=== PATIENT | male | born 1965 | race Caucasian/White ===

== ENCOUNTER 2017-02-08 23:03 | Emergency (ER) | payer MEDICAID, OTHER, SELFPAY ==
[~2017-02-08] VITALS: Ht 172.7 cm; Wt 77.0 kg
[2017-02-08 23:10] VITALS: BP 130/100
[2017-02-08] MEDS ORDERED: ATEN50TA2 (23:20)
[2017-02-08] MEDS ORDERED: OMEP40CA2 (23:20)
[2017-02-08] MEDS ORDERED: DULO1CAP3 (23:20)
[2017-02-08] MEDS ORDERED: ACETGRA (23:20)
[2017-02-08] MEDS ORDERED: MELO15TA4 (23:20)
== END 2017-02-09 00:26 | disposition left against medical advice (07) ==
LOC: M ED 23:03 → EDBD 23:03 → M ED 02-09 00:26
DX: S61.211A Laceration without foreign body of left index finger without damage to nail, initial encounter (principal); S61.213A Laceration without foreign body of left middle finger without damage to nail, initial encounter; W31.2XXA Contact with powered woodworking and forming machines, initial encounter; Y92.9 Unspecified place or not applicable; Y93.9 Activity, unspecified; Y99.9 Unspecified external cause status; Z53.21 Procedure and treatment not carried out due to patient leaving prior to being seen by health care provider

== ENCOUNTER → 2017-03-26 | Outpatient (CLI) | payer SELFPAY, MEDICAID, OTHER ==
[~2017-03-26] MED LIST: ACETGRA; ATEN50TA2; DULO1CAP3; MELO15TA4; OMEP40CA2
--- NOTE | 2017-03-26 18:31 | REP ---
LEFT FOOT COMPLETE: 03/26/2017. Comparison: The patient also had an ankle series this date. Clinical history: Trauma, patient fell off ladder. Findings: There is a mildly comminuted fracture through the calcaneus, vertically oriented, and extending to the anterior margin of posterior subtalar joint. Talonavicular articulation is preserved. The calcaneal cuboid articulation grossly intact. Posterior calcaneus preserved. Posterior subtalar joint grossly aligned. Tarsal bones, metatarsals and phalanges are without definite acute fracture. Impression: 1. Comminuted fracture of the calcaneus in the mid body into the anterior process and neck of the calcaneus and seen with small fragment anterolaterally near the calcaneocuboid joint. No other visible fracture. Prominent soft tissue swelling. Signed by Mayur Chirinos MD 03/26/2017 08:07 P
--- NOTE | 2017-03-26 18:45 | REP ---
LEFT ANKLE COMPLETE: 03/26/2017: Clinical history: Trauma, fell off ladder. Findings: No prior study. Prominent soft tissue swelling over the lateral malleolus. There is no fracture of the distal tibia or fibula. However, there is a comminuted fracture of the calcaneus extending into the anterior margin posterior subtalar joint. Mortise joint symmetric and preserved. Talar dome shows no osteochondral defect. Posterior calcaneus was intact. Talonavicular joint was intact. Impression: 1. Mildly comminuted fracture of the calcaneus at the subtalar joint is just anterior to the posterior subtalar joint and some and extending into the neck of the talus see no subluxation or dislocation. There is significant soft tissue swelling around the ankle, but no visible fracture of the distal tibia or fibula. Mortise joint symmetric and preserved. Signed by Mayur Chirinos MD 03/26/2017 08:08 P
== END ==
LOC: M ADAMS 17:17
PROVIDERS: ATTEND Physician Assistant
DX: M25.572 Pain in left ankle and joints of left foot (principal); M79.672 Pain in left foot

== ENCOUNTER → 2017-04-08 | Outpatient (CLI) | payer OTHER ==
--- NOTE | 2017-04-08 10:29 | REP ---
CT STUDY OF THE LEFT FOOT WITHOUT CONTRAST: HISTORY: Calcaneal fracture. COMPARISON RADIOGRAPH: March 26, 2017 CT TECHNIQUE: Helical scanning is acquired. Contiguous 2 mm axial images are generated. Coronal and sagittal multiplanar reformation images are generated and reviewed. CT FINDINGS: CT study confirms the presence of a moderately comminuted depressed fracture of the calcaneus. On coronal reformation images, there is a 3.5 mm diastasis in the sagittally oriented component of the fracture involving the posterior facet. There is impaction. There is some lateral displacement along the lateral contour. Medially, the fracture involves the anterior portion of the calcaneus as well. No talar fracture is seen. The tibial plafond and talar dome appear intact. No distal fibular fracture is noted. No other tarsal bony injury is appreciated. IMPRESSION: Comminuted calcaneal fracture with flattening. Signed by Gama Faust MD 04/08/2017 03:28 P
== END ==
LOC: M RAD 09:11
PROVIDERS: ATTEND Orthopaedic Surgery
DX: S92.012A Displaced fracture of body of left calcaneus, initial encounter for closed fracture (principal); X58.XXXA Exposure to other specified factors, initial encounter; Y92.89 Other specified places as the place of occurrence of the external cause; Y99.9 Unspecified external cause status; Y93.9 Activity, unspecified

== ENCOUNTER → 2017-06-26 | Outpatient (REF) | payer MEDICAID, OTHER ==
[2017-06-26 20:31] LABS: FOLATE 7.9 NG/ML; VITAMIN B12 LEVEL 514 PG/ML
[2017-06-26 20:32] LABS: ALBUMIN/GLOBULIN RATIO 1.33 (1.00-1.93); ALKALINE PHOSPHATASE 58 U/L (45-117); ALT/SGPT 18 U/L (12-78); ANION GAP 7 MEQ/L (8-16); AST/SGOT 6 U/L (7-37); BILIRUBIN,TOTAL 0.4 MG/DL (0.2-1.0); BLOOD UREA NITROGEN 15 MG/DL (7-18); CALCIUM LEVEL 9.2 MG/DL (8.5-10.1); CARBON DIOXIDE LEVEL 30 MEQ/L (21-32); CHLORIDE LEVEL 106 MEQ/L (98-107); CREATININE FOR GFR 1.01 MG/DL (0.70-1.30); GLOMERULAR FILTRATION RATE > 60.0 (>56); GLUCOSE, FASTING 99 MG/DL (70-105); POTASSIUM SERUM 4.5 MEQ/L (3.5-5.1); SODIUM LEVEL 143 MEQ/L (136-145)
[2017-06-26 20:49] LABS: MEAN CORPUSCULAR HGB CONC 34.5 g/dl (32.0-36.5); MEAN CORPUSCULAR VOLUME 98.5 fl (80.0-96.0); PLATELET COUNT, AUTOMATED 260 10^3/uL (150-450); RED CELL DISTRIBUTION WIDTH 11.8 % (11.5-14.5); WHITE BLOOD COUNT 6.1 10^3/uL (4.0-10.0)
== END ==
LOC: M SFHCADAM 14:44
PROVIDERS: ATTEND Physician Assistant
DX: G89.29 Other chronic pain (principal); I10 Essential (primary) hypertension; D75.89 Other specified diseases of blood and blood-forming organs; Z12.11 Encounter for screening for malignant neoplasm of colon

== ENCOUNTER 2017-12-23 15:13 | Day surgery (SDC) | payer OTHER ==
[2017-12-23] MEDS: LIDOCAINE 2% JELLY 30 ML TOP (17:22)
[2017-12-23] MEDS ORDERED: PROPOFOL 200 MG/20 ML VIAL As Ordered (19:13)
[2017-12-23] MEDS ORDERED: MIDAZOLAM INJ 2 MG/2 ML VIAL (J2250) As Ordered ×3 (19:13→19:23)
[2017-12-23] MEDS ORDERED: fentaNYL 100 MCG/2 ML INJECTION (J3010) As Ordered (19:13)
== END 2017-12-23 21:00 | disposition home or self-care (01) ==
LOC: M SDC 21:00 → M ED 15:13 → M SDC 17:01
DX: T18.5XXA Foreign body in anus and rectum, initial encounter (principal); I10 Essential (primary) hypertension; Z86.73 Personal history of transient ischemic attack (TIA), and cerebral infarction without residual deficits; F17.210 Nicotine dependence, cigarettes, uncomplicated; Z79.82 Long term (current) use of aspirin; Z79.899 Other long term (current) drug therapy; Y92.002 Bathroom of unspecified non-institutional (private) residence as the place of occurrence of the external cause
CPT/HCPCS: 46608

== ENCOUNTER 2018-10-24 23:28 | Emergency (ER) | payer OTHER, MEDICAID ==
[~2018-10-24] VITALS: Ht 172.7 cm; Wt 84.1 kg
[~2018-10-24 23:28] MED LIST changes: +ACET-716 PO; +ASPI-286 PO; +ASPI81CH49 PO; +BISO5TAB5 PO; +DULO1CAP3 PO; +FOLI1TAB11 PO; +LISI-542 PO; +MELO15TA28; +MELO15TA28 PO; -MELO15TA4; +NICO21DI34 TD; +NICO21PAT TD; +OMEP40CA2 PO; +PATIENT COMMENT; +SIMV40TA2 PO; +THIA100T7 PO; +THIA100TA PO; +VITMTA PO
[2018-10-25] MEDS ORDERED: NS 1,000 ML IV ONE (00:15)
[2018-10-25] MEDS ORDERED: ONDANSETRON 4MG/2ML VIAL (J2405) IV ONE (00:15)
[2018-10-25 00:46] LABS: BASO # 0.1 10^3/uL (0.0-0.2); BASO % 0.9 % (0.0-1.0); EOS # 0.1 10^3/uL (0.0-0.50); EOS % 1.6 % (0.0-3.0); HEMOGLOBIN 16.2 g/dl (13.5-17.5); LYMPH # 2.7 10^3/uL (1.5-4.5); LYMPH % 39.9 % (24.0-44.0); MEAN CORPUSCULAR HEMOGLOBIN 33.6 pg (27.0-33.0); MEAN CORPUSCULAR HGB CONC 35.2 g/dl (32.0-36.5); MEAN CORPUSCULAR VOLUME 95.4 fl (80.0-96.0); MONO # 0.4 10^3/uL (0.0-0.8); MONO % 6.4 % (0.0-5.0); NEUTROPHILS # 3.4 10^3/uL (1.8-7.7); NEUTROPHILS % 50.8 % (36.0-66.0); PLATELET COUNT, AUTOMATED 203 10^3/uL (150-450); RED BLOOD COUNT 4.82 10^6/uL (4.30-6.10); WHITE BLOOD COUNT 6.7 10^3/uL (4.0-10.0)
[2018-10-25 01:09] LABS: AMPHETAMINES LEVEL URINE NEGATIVE (NEGATIVE); BARBITURATES URINE NEGATIVE (NEGATIVE); BENZODIAZEPINES URINE NEGATIVE (NEGATIVE); CANNABINOIDS URINE NEGATIVE (NEGATIVE); COCAINE METABOLITE URINE NEGATIVE (NEGATIVE); METHADONE URINE NEGATIVE (NEGATIVE); OPIATES URINE NEGATIVE (NEGATIVE); PHENCYCLIDINE URINE NEGATIVE (NEGATIVE)
[2018-10-25 01:19] LABS: ACETAMINOPHEN LEVEL < 2.0 UG/ML (10.0-30.0); ALBUMIN 3.8 GM/DL (3.2-5.2); ALT/SGPT 20 U/L (12-78); BILIRUBIN,DIRECT 0.1 MG/DL (0.0-0.2); BILIRUBIN,TOTAL 0.4 MG/DL (0.2-1.0); BLOOD UREA NITROGEN 5 MG/DL (7-18); CALCIUM LEVEL 8.3 MG/DL (8.5-10.1); CARBON DIOXIDE LEVEL 21 MEQ/L (21-32); CHLORIDE LEVEL 107 MEQ/L (98-107); CK-MB VALUE MASS < 1.0 NG/ML (<3.6); CPK CREATINE PHOSPHOKINASE 60 U/L (39-308); CREATININE FOR GFR 0.82 MG/DL (0.70-1.30); GLOMERULAR FILTRATION RATE > 60.0 (>56); GLUCOSE, FASTING 85 MG/DL (70-100); MB/CK RELATIVE INDEX 1.66 (< OR =4); POTASSIUM SERUM 4.1 MEQ/L (3.5-5.1); SALICYLATE LEVEL 4.5 MG/DL (5.0-30.0); SODIUM LEVEL 139 MEQ/L (136-145); TOTAL PROTEIN 6.8 GM/DL (6.4-8.2); TROPONIN I < 0.02 NG/ML (< 0.10)
[2018-10-25 01:26] LABS: INFLUENZA A AMPLIFICATION NEGATIVE (NEGATIVE); INFLUENZA B AMPLIFICATION NEGATIVE (NEGATIVE)
[2018-10-25] MEDS ORDERED: ISOVUE-370 76% 100ML VIAL (Q9967) As Ordered ONE (01:34)
--- NOTE | 2018-10-25 02:38 | REPVR ---
EXAM: CT Head Without Contrast EXAM DATE/TIME: 10/25/2018 1:46 AM CLINICAL HISTORY: 52 years old, male; Signs and symptoms; Altered mental status/memory loss and syncope and collapse; Confusion or disorientation; Additional info: AMS, syncope TECHNIQUE: Imaging protocol: Axial computed tomography images of the head/brain without contrast. Radiation optimization: All CT scans at this facility use at least one of these dose optimization techniques: automated exposure control; mA and/or kV adjustment per patient size (includes targeted exams where dose is matched to clinical indication); or iterative reconstruction. COMPARISON: CT Head without contrast 12/16/2017 12:19 AM FINDINGS: There is no acute intracranial hemorrhage, extra axial hematoma, or midline shift. There is mild parenchymal volume loss, similar to the prior exam. The ventricles are not dilated. Blair cisterna magna incidentally noted. No CT findings are seen at the current time to suggest changes of acute territorial vascular infarction. Note is made however, that CT changes, may lag clinical findings in acute CVA. If clinically indicated, consideration could be given to MRI with diffusion weighted imaging, due to its greater sensitivity, for detection of acute ischemic change. Intracranial calcifications are incidentally noted. No pericranial scalp hematoma is seen. No acute cranial vault fracture is seen. No fluid is seen within the visualized paranasal sinuses. Opacified left sided mastoid air cells are noted. This appears greater than on the prior study. IMPRESSION: No evidence of acute territorial major vessel infarct, mass effect, or hemorrhage. Left-sided mastoiditis. Other findings discussed above. Electronically signed by: Mario Marrero On 10/25/2018 02:38:29 AM
--- NOTE | 2018-10-25 03:08 | REPVR ---
EXAM: CT Angiography Chest With Contrast EXAM DATE/TIME: 10/25/2018 1:46 AM CLINICAL HISTORY: 52 years old, male; Signs and symptoms; Other: Syncope; Additional info: AMS, syncope TECHNIQUE: Imaging protocol: Axial computed tomographic angiography images of the chest with intravenous contrast using CT angiography protocol. Coronal and sagittal reformatted images were created and reviewed. 3D rendering: MIP reconstructed images were created and reviewed. Radiation optimization: All CT scans at this facility use at least one of these dose optimization techniques: automated exposure control; mA and/or kV adjustment per patient size (includes targeted exams where dose is matched to clinical indication); or iterative reconstruction. Contrast material: ISOVUE 370; Contrast volume: 100 ml; Contrast route: IV; COMPARISON: CR Abdomen,Flat Upright,PA CHEST 12/23/2017 3:50 PM FINDINGS: PULMONARY ARTERIES: Enhancement within the pulmonary arteries is preserved bilaterally to the distal segmental levels, without evidence for acute pulmonary embolus. Intensity of contrast bolus opacification within branches beyond the distal segmental levels is suboptimal to evaluate for, smaller distal PE. The main pulmonary trunk is not dilated. HEART AND AORTA: The heart is not enlarged. No pericardial effusion. No thoracic aortic aneurysm or dissection. The visualized proximal great vessels within the superior mediastinum are preserved. MEDIASTINUM: No mediastinal gas. The visualized thyroid gland is homogeneous. No mediastinal hematoma. Trace amount of fluid noted within the pericardial recesses. Small mediastinal and hilar lymph nodes are seen. No lymphadenopathy by size criteria. No periesophageal stranding or gas. LUNGS: The lungs are symmetrically expanded. There is no consolidation, pneumothorax or pleural effusion. Bibasal subpleural groundglass and reticular opacities noted likely due to atelectasis and/or pulmonary parenchymal scarring. Minimal subpleural emphysematous changes noted at the lung apices. No suspicious pulmonary parenchymal mass. UPPER ABDOMEN: Please refer to same day CT abdomen report for complete findings. MSK AND BODY WALL: No body wall hematoma. No axillary lymphadenopathy. No acute fracture. Mild degenerative changes of the spine and bony thorax. IMPRESSION: Mild bibasal atelectasis. No acute findings are seen otherwise. Incidental and non-emergent findings discussed above. Electronically signed by: Mario Marrero On 10/25/2018 03:08:07 AM
--- NOTE | 2018-10-25 03:18 | REPVR ---
EXAM: CT Abdomen and Pelvis With Contrast EXAM DATE/TIME: 10/25/2018 1:46 AM CLINICAL HISTORY: 52 years old, male; Abdominal pain; Generalized; Additional info: AMS, syncope TECHNIQUE: Imaging protocol: Axial computed tomography images of the abdomen and pelvis with intravenous contrast. Coronal and sagittal reformatted images were created and reviewed. Radiation optimization: All CT scans at this facility use at least one of these dose optimization techniques: automated exposure control; mA and/or kV adjustment per patient size (includes targeted exams where dose is matched to clinical indication); or iterative reconstruction. Contrast material: ISOVUE 370; Contrast volume: 100 ml; Contrast route: IV; COMPARISON: No relevant prior studies available. FINDINGS: LUNG BASES: Please refer to same day CT chest report for complete findings. VASCULAR: No abdominal aortic aneurysm, dissection, or retroperitoneal hematoma. There is aortoiliac and femoral atherosclerosis. PERITONEAL : No free air or free fluid. GI: No hiatal hernia. The stomach contains some fluid and gas. The stomach and duodenum are not sufficiently distended to exclude wall thickening or fold thickening. Clinical correlation with symptoms. No perigastric or periduodenal inflammatory stranding. Mild gastroenteritis would be difficult to exclude by imaging but could be correlated clinically. No appearance of bowel obstruction. Small nonspecific mesenteric lymph nodes. No focal mesenteric inflammatory stranding. Scattered fecal material and gas within portions of the colon and rectum. No pericolonic inflammatory stranding. No evidence of acute diverticulitis. The appendix does not appear inflamed. HEPATOBILIARY, PANCREAS, SPLEEN: The liver is not enlarged. Hepatic attenuation is consistent with fatty infiltration. Mildly distended gallbladder. No pericholecystic fluid or stranding. No calcific gallstones. No significant biliary dilation. No pancreatic inflammation. Spleen not enlarged. ADRENALS, KIDNEYS, BLADDER, RETROPERITONEAL: Adrenals within normal limits. No hydronephrosis. Symmetric renal enhancement. No perinephric fluid. Mildly distended urinary bladder. No perivesical stranding. Mild heterogeneity and slight prominence of the prostate impressing along the base of the bladder. Prostate calcifications are seen. Central penile calcifications noted. There is slight asymmetric prominence of the left seminal vesicle compared to the right of uncertain significance. This could be developmental. MUSCULOSKELETAL: Mild degenerative changes of the spine. IMPRESSION: No free air, free fluid or focal mesenteric inflammation. Nonspecific gastrointestinal findings as discussed above. Other incidental findings discussed above. Electronically signed by: Mario Marrero On 10/25/2018 03:17:40 AM
[2018-10-25 03:45] VITALS: BP 138/85
--- NOTE | 2018-10-25 20:56 | ECGEPIP ---
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
== END 2018-10-25 04:11 | disposition home or self-care (01) ==
LOC: M ED 23:28 → EDBD 23:28 → M ED 10-25 04:11
DX: F10.929 Alcohol use, unspecified with intoxication, unspecified (principal); I10 Essential (primary) hypertension; F17.210 Nicotine dependence, cigarettes, uncomplicated; Z86.73 Personal history of transient ischemic attack (TIA), and cerebral infarction without residual deficits; Z79.899 Other long term (current) drug therapy; Z79.82 Long term (current) use of aspirin
CPT/HCPCS: 36415; 70450; 71275; 74177; 80048; 80076; 80307; 81001; 82140; 82550; 82553; 83605; 84443; 85025; 87502; 93005; 93041; 94760; 96374; 99285; G0480; J2405; Q9967

== ENCOUNTER → 2019-04-28 | Outpatient (REF) | payer MEDICAID, OTHER ==
[~2019-04-28] MED LIST changes: -BISO5TAB5 PO; +BISO5TAB9 PO; -DULO1CAP3; -DULO1CAP3 PO; +DULO1CAP6; +DULO1CAP6 PO; -OMEP40CA2; -OMEP40CA2 PO; +OMEP40CA97; +OMEP40CA97 PO
[2019-04-28 13:15] LABS: HEMATOCRIT 46.3 % (42.0-52.0); HEMOGLOBIN 15.8 g/dl (13.5-17.5); MEAN CORPUSCULAR HEMOGLOBIN 34.5 pg (27.0-33.0); MEAN CORPUSCULAR HGB CONC 34.1 g/dl (32.0-36.5); MEAN CORPUSCULAR VOLUME 101.1 fl (80.0-96.0); PLATELET COUNT, AUTOMATED 264 10^3/uL (150-450); RED BLOOD COUNT 4.58 10^6/uL (4.30-6.10); WHITE BLOOD COUNT 5.8 10^3/uL (4.0-10.0)
[2019-04-28 13:41] LABS: ALBUMIN 4.1 GM/DL (3.2-5.2); ALT/SGPT 23 U/L (12-78); BILIRUBIN,TOTAL 0.5 MG/DL (0.2-1.0); BLOOD UREA NITROGEN 18 MG/DL (7-18); CALCIUM LEVEL 9.6 MG/DL (8.5-10.1); CARBON DIOXIDE LEVEL 28 MEQ/L (21-32); CHLORIDE LEVEL 103 MEQ/L (98-107); CHOLESTEROL LEVEL 155 MG/DL (<200); CHOLESTEROL RISK RATIO 2.313 (<5); CREATININE FOR GFR 1.28 MG/DL (0.70-1.30); FREE T4 0.88 NG/DL (0.76-1.46); GLOMERULAR FILTRATION RATE > 60.0 (>56); GLUCOSE, FASTING 100 MG/DL (70-100); HDL CHOLESTEROL 67 MG/DL (>40); LDL CHOLESTEROL 77 MG/DL (<100); NON-HDL-C 88 MG/DL; POTASSIUM SERUM 5.4 MEQ/L (3.5-5.1); SODIUM LEVEL 137 MEQ/L (136-145); TRIGLYCERIDES LEVEL 53 MG/DL (<150)
[2019-04-28 13:51] LABS: CREATININE, URINE < 13.0 MG/DL; MALB URINE SIEMENS 8.6 MG/L
== END ==
LOC: M SFHCADAM 08:57
PROVIDERS: ATTEND Physician Assistant
DX: I10 Essential (primary) hypertension (principal); M19.90 Unspecified osteoarthritis, unspecified site

== ENCOUNTER → 2019-04-28 | Outpatient (CLI) | payer MEDICAID, OTHER ==
--- NOTE | 2019-04-28 11:32 | REP ---
Three view chest: 04/28/2019. Indication: Cough. Comparison: 10/25/2018. Findings: The lungs are clear. There is no pleural effusion or pneumothorax. The cardiomediastinal silhouette is unremarkable. Lower cervical surgical sequelae status post ACDF are noted. Impression: Clear lungs. Electronically Signed by Waylon Queen DO 04/28/2019 11:24 A
== END ==
LOC: M ADAMS 09:13
PROVIDERS: ATTEND Physician Assistant
DX: R05 Cough (principal)

== ENCOUNTER → 2019-05-18 | Outpatient (REF) | payer OTHER, MEDICAID | LOC: M SFHCADAM 15:33 | PROVIDERS: ATTEND Physician Assistant | DX: E87.5 Hyperkalemia (principal) ==

== ENCOUNTER → 2020-09-21 | Outpatient (REF) | payer OTHER, MEDICAID ==
[~2020-09-21] MED LIST changes: +BISO5TAB14 PO; -BISO5TAB9 PO; -LISI-542 PO; +LISI-898 PO; -SIMV40TA2 PO; +SIMV40TA20 PO
[2020-09-21 17:38] LABS: HEMATOCRIT 51.6 % (42.0-52.0); HEMOGLOBIN 17.8 g/dl (13.5-17.5); MEAN CORPUSCULAR HGB CONC 34.5 g/dl (32.0-36.5); MEAN CORPUSCULAR VOLUME 101.4 fl (80.0-96.0); PLATELET COUNT, AUTOMATED 258 10^3/uL (150-450); RED BLOOD COUNT 5.09 10^6/uL (4.30-6.10); WHITE BLOOD COUNT 6.7 10^3/uL (4.0-10.0)
[2020-09-21 18:06] LABS: ALBUMIN 4.5 GM/DL (3.2-5.2); ALT/SGPT 22 U/L (12-78); BILIRUBIN,TOTAL 0.6 MG/DL (0.2-1.0); BLOOD UREA NITROGEN 6 MG/DL (7-18); CALCIUM LEVEL 9.8 MG/DL (8.5-10.1); CARBON DIOXIDE LEVEL 30 MEQ/L (21-32); CHLORIDE LEVEL 104 MEQ/L (98-107); CHOLESTEROL LEVEL 218 MG/DL (<200); CHOLESTEROL RISK RATIO 2.344 (<5); CREATININE FOR GFR 0.92 MG/DL (0.70-1.30); FREE T4 0.85 NG/DL (0.76-1.46); GLOMERULAR FILTRATION RATE > 60.0 (>56); GLUCOSE, FASTING 99 MG/DL (70-100); HDL CHOLESTEROL 93 MG/DL (>40); LDL CHOLESTEROL 113 MG/DL (<100); NON-HDL-C 125 MG/DL; POTASSIUM SERUM 4.9 MEQ/L (3.5-5.1); SODIUM LEVEL 138 MEQ/L (136-145); TOTAL PROTEIN 7.5 GM/DL (6.4-8.2); TRIGLYCERIDES LEVEL 61 MG/DL (<150)
== END ==
LOC: M SFHCADAM 13:57
PROVIDERS: ATTEND Physician Assistant
DX: I10 Essential (primary) hypertension (principal); F17.219 Nicotine dependence, cigarettes, with unspecified nicotine-induced disorders; Z12.11 Encounter for screening for malignant neoplasm of colon; M19.90 Unspecified osteoarthritis, unspecified site; I65.21 Occlusion and stenosis of right carotid artery; Z86.73 Personal history of transient ischemic attack (TIA), and cerebral infarction without residual deficits

== ENCOUNTER 2021-11-21 22:32 | Emergency (ER) | payer OTHER ==
[~2021-11-21] VITALS: Ht 175.3 cm; Wt 88.1 kg
[~2021-11-21 22:32] MED LIST changes: -ASPI-286 PO; -LISI-898 PO; +LISI5TAB11 PO; +OMEP40CA4; +OMEP40CA4 PO; -OMEP40CA97; -OMEP40CA97 PO; +SM C81CH2 PO
[2021-11-21] MEDS ORDERED: GI COCKTAIL 50ML BTL(HYOSCYAMINE/MAALOX/LIDOCAINE VISCOUS)(1:3:1) PO ONE (22:45)
[2021-11-21] MEDS ORDERED: NS 1,000 ML IV ONE (22:45)
[2021-11-21 23:04] LABS: VENOUS BASE EXCESS -1.9 (-2.0-2.0); VENOUS O2 SATURATION 96.7 % (60.0-80.0); VENOUS PARTIAL PRESSURE CO2 35.2 mmHg (38.0-50.0); VENOUS PARTIAL PRESSURE O2 90.3 mmHg (30.0-50.0); VENOUS PH 7.413 UNITS (7.330-7.430); VENOUS STANDARD HCO3 22.9 MEQ/L
[2021-11-21] MEDS: COMBIVENT RESPIMAT 100-20MCG INHALER 4GM INH SCH ×3 (23:10→23:37)
[2021-11-21 23:33] LABS: BASO # 0.1 10^3/uL (0.0-0.2); BASO % 1.2 % (0.0-1.0); EOS # 0.1 10^3/uL (0.0-0.5); EOS % 1.5 % (0.0-3.0); HEMATOCRIT 46.9 % (42.0-52.0); HEMOGLOBIN 16.3 g/dl (13.5-17.5); LYMPH # 3.2 10^3/uL (1.5-5.0); LYMPH % 43.7 % (24.0-44.0); MEAN CORPUSCULAR HEMOGLOBIN 33.7 pg (27.0-33.0); MEAN CORPUSCULAR HGB CONC 34.8 g/dl (32.0-36.5); MEAN CORPUSCULAR VOLUME 96.9 fl (80.0-96.0); MONO # 0.5 10^3/uL (0.0-0.8); MONO % 7.1 % (2.0-8.0); NEUTROPHILS # 3.4 10^3/uL (1.5-8.5); PLATELET COUNT, AUTOMATED 213 10^3/uL (150-450); RED BLOOD COUNT 4.84 10^6/uL (4.30-6.10); WHITE BLOOD COUNT 7.3 10^3/uL (4.0-10.0)
[2021-11-22 00:04] LABS: CK-MB VALUE MASS 1.3 NG/ML (<3.6); MB/CK RELATIVE INDEX 1.09 (< OR =4)
[2021-11-22 00:12] LABS: BLOOD UREA NITROGEN 4 MG/DL (7-18); CALCIUM LEVEL 8.4 MG/DL (8.5-10.1); CARBON DIOXIDE LEVEL 22 MEQ/L (21-32); CHLORIDE LEVEL 102 MEQ/L (98-107); CREATININE FOR GFR 0.75 MG/DL (0.70-1.30); ETHYL ALCOHOL (ETHANOL) 0.291 % (0.000-0.010); FREE T4 1.04 NG/DL (0.76-1.46); GLOMERULAR FILTRATION RATE > 60.0 (>56); GLUCOSE, FASTING 81 MG/DL (70-100); MAGNESIUM LEVEL 2.3 MG/DL (1.8-2.4); POTASSIUM SERUM 5.1 MEQ/L (3.5-5.1); SODIUM LEVEL 134 MEQ/L (136-145)
[2021-11-22 00:15] LABS: AMPHETAMINES LEVEL URINE NEGATIVE (NEGATIVE); BARBITURATES URINE NEGATIVE (NEGATIVE); BENZODIAZEPINES URINE NEGATIVE (NEGATIVE); CANNABINOIDS URINE NEGATIVE (NEGATIVE); COCAINE METABOLITE URINE NEGATIVE (NEGATIVE); METHADONE URINE NEGATIVE (NEGATIVE); OPIATES URINE NEGATIVE (NEGATIVE); PHENCYCLIDINE URINE NEGATIVE (NEGATIVE)
[2021-11-22 00:21] LABS: CK-MB VALUE MASS 1.1 NG/ML (<3.6); MB/CK RELATIVE INDEX 0.69 (< OR =4)
[2021-11-22] MEDS ORDERED: KETOROLAC 30 MG/ML 1ML VIAL IV ONE (01:05)
[2021-11-22 06:30] VITALS: BP 115/74
== END 2021-11-22 06:50 | disposition home or self-care (01) ==
LOC: M ED 22:32 → EDBD 22:32 → M ED 11-22 06:50
DX: F10.929 Alcohol use, unspecified with intoxication, unspecified (principal); R94.31 Abnormal electrocardiogram [ECG] [EKG]; I10 Essential (primary) hypertension; F32.A Depression, unspecified; F17.200 Nicotine dependence, unspecified, uncomplicated; Z79.811 Long term (current) use of aromatase inhibitors; Z79.899 Other long term (current) drug therapy
CPT/HCPCS: 70450; 71045; 72125; 80048; 80307; 82077; 82550; 82553; 82803; 83735; 84439; 84443; 85025; 87486; 87581; 87633; 87798; 93005; 93041; 94640; 94760; 96361; 96374; 99285; J1885

== ENCOUNTER → 2023-01-15 | Outpatient (REF) | payer OTHER, MEDICAID ==
[2023-01-15 13:08] LABS: HEMATOCRIT 48.8 % (42.0-52.0); MEAN CORPUSCULAR HGB CONC 34.8 g/dl (32.0-36.5); MEAN CORPUSCULAR VOLUME 97.6 fl (80.0-96.0); PLATELET COUNT, AUTOMATED 188 10^3/uL (150-450); WHITE BLOOD COUNT 4.6 10^3/uL (4.0-10.0)
[2023-01-15 13:30] LABS: ALKALINE PHOSPHATASE 73 U/L (46-116); ALT/SGPT 68 U/L (7.0-40); AST/SGOT 53 U/L (<34); BLOOD UREA NITROGEN < 5 MG/DL (9-23); CALCIUM LEVEL 10.2 MG/DL (8.5-10.1); CARBON DIOXIDE LEVEL 27 MMOL/L (20-31); CHLORIDE LEVEL 99 MMOL/L (98-107); CHOLESTEROL LEVEL 129 MG/DL (<200); CHOLESTEROL RISK RATIO 1.46 (<5); CREATININE FOR GFR 0.79 MG/DL (0.70-1.30); FREE T4 1.36 NG/DL (0.89-1.76); GLOMERULAR FILTRATION RATE > 60.0 (>56); GLUCOSE, FASTING 86 MG/DL (60-100); HDL CHOLESTEROL 88.3 MG/DL (>40); LDL CHOLESTEROL 29.5 MG/DL (<100); NON-HDL-C 40.7 MG/DL; POTASSIUM SERUM 5.3 MMOL/L (3.5-5.1); SODIUM LEVEL 135 MMOL/L (136-145); THYROID STIMULATING HORMONE 1.071 uIU/ML (0.55-4.78); TOTAL PROTEIN 6.6 G/DL (5.7-8.2); TRIGLYCERIDES LEVEL 56 MG/DL (<150)
== END ==
LOC: M SFHCADAM 11:14
PROVIDERS: ATTEND Physician Assistant
DX: I10 Essential (primary) hypertension (principal); Z86.73 Personal history of transient ischemic attack (TIA), and cerebral infarction without residual deficits; Z72.0 Tobacco use; F10.10 Alcohol abuse, uncomplicated; Z12.5 Encounter for screening for malignant neoplasm of prostate

== ENCOUNTER → 2023-02-12 | Outpatient (REF) | payer OTHER, MEDICAID | LOC: M SFHCADAM 11:13 | PROVIDERS: ATTEND Physician Assistant | DX: R74.8 Abnormal levels of other serum enzymes (principal) ==

== ENCOUNTER → 2023-09-05 | Outpatient (REF) | payer OTHER, MEDICAID ==
[2023-09-05 15:17] LABS: HEMATOCRIT 48.9 % (42.0-52.0); HEMOGLOBIN 16.9 g/dl (13.5-17.5); MEAN CORPUSCULAR HEMOGLOBIN 33.9 pg (27.0-33.0); MEAN CORPUSCULAR HGB CONC 34.6 g/dl (32.0-36.5); MEAN CORPUSCULAR VOLUME 98.2 fl (80.0-96.0); PLATELET COUNT, AUTOMATED 216 10^3/uL (150-450); RED BLOOD COUNT 4.98 10^6/uL (4.30-6.10); WHITE BLOOD COUNT 5.3 10^3/uL (4.0-10.0)
[2023-09-05 15:35] LABS: ALBUMIN 4.1 G/DL (3.2-5.2); ALKALINE PHOSPHATASE 64 U/L (46-116); ALT/SGPT 25 U/L (7.0-40); AST/SGOT 12 U/L (<34); BILIRUBIN,TOTAL 0.8 MG/DL (0.3-1.2); BLOOD UREA NITROGEN 9 MG/DL (9-23); CALCIUM LEVEL 9.7 MG/DL (8.5-10.1); CARBON DIOXIDE LEVEL 28 MMOL/L (20-31); CHLORIDE LEVEL 104 MMOL/L (98-107); GLOMERULAR FILTRATION RATE > 60.0 (>56); GLUCOSE, FASTING 96 MG/DL (60-100); POTASSIUM SERUM 4.5 MMOL/L (3.5-5.1); SODIUM LEVEL 137 MMOL/L (136-145); TOTAL PROTEIN 6.9 G/DL (5.7-8.2)
[2023-09-05 15:36] LABS: FOLATE 17.5 NG/ML (>5.4); HEPATITIS B SURFACE ANTIBODY NEGATIVE (POSITIVE)
[2023-09-05 15:37] LABS: VITAMIN B12 LEVEL 307 PG/ML (211-911)
== END ==
LOC: M SFHCADAM 10:29
PROVIDERS: ATTEND Physician Assistant
DX: I10 Essential (primary) hypertension (principal); I65.21 Occlusion and stenosis of right carotid artery; D75.89 Other specified diseases of blood and blood-forming organs; R74.8 Abnormal levels of other serum enzymes; F17.219 Nicotine dependence, cigarettes, with unspecified nicotine-induced disorders; Z86.73 Personal history of transient ischemic attack (TIA), and cerebral infarction without residual deficits

== ENCOUNTER → 2024-09-21 | Outpatient (REF) | payer OTHER, MEDICAID ==
[2024-09-21 18:07] LABS: ALBUMIN 3.8 G/DL (3.2-5.2); ALKALINE PHOSPHATASE 68 U/L (40-129); ALT/SGPT 20 U/L (7.0-40); AST/SGOT 17 U/L (<34); BILIRUBIN,TOTAL 0.7 MG/DL (0.3-1.2); BLOOD UREA NITROGEN 10 MG/DL (9-23); CALCIUM LEVEL 9.5 MG/DL (8.5-10.1); CARBON DIOXIDE LEVEL 29 MMOL/L (20-31); CHLORIDE LEVEL 101 MMOL/L (98-107); CHOLESTEROL LEVEL 129 MG/DL (<200); CHOLESTEROL RISK RATIO 1.49 (<5); CREATININE FOR GFR 0.79 MG/DL (0.70-1.30); GLOMERULAR FILTRATION RATE > 60.0 (>56); GLUCOSE, FASTING 115 MG/DL (60-100); HDL CHOLESTEROL 86.5 MG/DL (>40); LDL CHOLESTEROL 30.7 MG/DL (<100); NON-HDL-C 42.5 MG/DL; POTASSIUM SERUM 4.5 MMOL/L (3.5-5.1); PSA SCREENING 0.57 NG/ML (< 4.00); SODIUM LEVEL 135 MMOL/L (136-145); TRIGLYCERIDES LEVEL 59 MG/DL (<150)
[2024-09-21 18:11] LABS: HEMATOCRIT 49.9 % (42.0-52.0); HEMOGLOBIN 17.2 g/dl (13.5-17.5); MEAN CORPUSCULAR HEMOGLOBIN 34.3 pg (27.0-33.0); MEAN CORPUSCULAR HGB CONC 34.5 g/dl (32.0-36.5); MEAN CORPUSCULAR VOLUME 99.4 fl (80.0-96.0); PLATELET COUNT, AUTOMATED 223 10^3/uL (150-450); RED BLOOD COUNT 5.02 10^6/uL (4.30-6.10); WHITE BLOOD COUNT 7.7 10^3/uL (4.0-10.0)
== END ==
LOC: M SFHCADAM 14:16
PROVIDERS: ATTEND Physician Assistant
DX: I65.21 Occlusion and stenosis of right carotid artery (principal); I10 Essential (primary) hypertension; J44.9 Chronic obstructive pulmonary disease, unspecified; N52.9 Male erectile dysfunction, unspecified; F17.219 Nicotine dependence, cigarettes, with unspecified nicotine-induced disorders; Z12.5 Encounter for screening for malignant neoplasm of prostate; Z86.73 Personal history of transient ischemic attack (TIA), and cerebral infarction without residual deficits